=== PATIENT | female | born 1960 | race Caucasian/White ===

== ENCOUNTER → 2018-07-10 | Outpatient (CLI) | payer MEDICARE ==
--- NOTE | 2018-07-11 10:19 | Diagnostic Imaging Report ---
TECHNIQUE: Magnetic resonance imaging of the LEFT SHOULDER was performed WITHOUT injected contrast. COMPARISON: None available. HISTORY: Left shoulder pain FINDINGS: MUSCLES AND TENDONS: Rotator Cuff: Tendons: Partial-thickness articular sided tearing of the supraspinatus tendon with retraction of the deep fibers approximately 2 cm coronal image 11. No full defect visualized. Muscles: No focal muscle atrophy. Biceps Tendon: The long head of the biceps tendon is within the bicipital groove. Tendinopathy. GLENOHUMERAL JOINT: Glenoid Labrum: Superior labral fraying. No detached tear. Articular Cartilage: High-grade cartilage loss with osteophytosis. AC JOINT AND ACROMION: Mild hypertrophic degenerative changes of the acromioclavicular joint. The acromion is unremarkable. BONE: No acute fracture. SOFT TISSUES: Otherwise, the soft tissues appear unremarkable. IMPRESSION: Supraspinatus partial-thickness articular sided tear with retraction. No atrophy. Glenohumeral degenerative arthrosis. Signed by: Dr. Adolfo Landaverde M.D. on 07/11/2018 10:16 AM
== END ==
LOC: MRI 15:14
PROVIDERS: ATTEND Specialist
DX: S46.092A Other injury of muscle(s) and tendon(s) of the rotator cuff of left shoulder, initial encounter (principal)